=== PATIENT | female | born 1940 | race African-American/Black ===

== ENCOUNTER 2024-02-09 11:00 | Outpatient (REF) | payer SELFPAY ==
[2024-02-09 13:54] LABS: Syphilis Screen Nonreactive (Nonreactive)
[2024-02-09 13:55] LABS: Thyroid Stimulating Hormone 1.19 uIU/mL (0.32-4.0)
== END 2024-02-09 11:01 | disposition home or self-care (01) ==
LOC: HO.HVNA 11:00
PROVIDERS: Visit Provider Psychiatry & Neurology Neurology
DX: F03.90 Unspecified dementia, unspecified severity, without behavioral disturbance, psychotic disturbance, mood disturbance, and anxiety (principal); F48.2 Pseudobulbar affect
CPT/HCPCS: 36415; 84436; 84443; 86780

== ENCOUNTER → 2024-04-17 14:29 | Outpatient (REF) | payer MEDICARE, SELFPAY ==
--- NOTE | 2024-04-17 14:39 | CA_ITS ---
Transthoracic Echocardiogram Patient (Last, First, Middle): Agueda Lopez, Gender: Female Date of : 1940 Age: 83 Procedure Date: 04/17/2024 Procedure Type: Transthoracic Echocardiogram Location: OP Height: 162. cm Weight: 48.99 kg BSA: 1.50 m2 Heart Rate: 83 bpm BP: 160 / 90 mmHg Monotype Setter: AIMEE Referring MD: Flory Neely [employer] Symptoms: SOB R06.02 Study Quality: Adequate ECG Rhythm: Sinus Conclusions: - The left ventricular systolic function is mildly decreased. The visually estimated ejection fraction is between 45-50%. - No obvious valvular pathology seen on this study. Findings Left Ventricle Normal left ventricular cavity size. There is mildly increased left ventricular wall thickness. The left ventricular systolic function is mildly decreased. The visually estimated ejection fraction is between 45-50%. There is mild global hypokinesis. Evidence suggests grade I (mild) diastolic dysfunction. Right Ventricle Normal right ventricular cavity size. There is mildly decreased right ventricular systolic function. Atria Both atria are normal in size. Aortic Valve There is a normal trileaflet aortic valve. There is mild calcification of the aortic valve. There is no aortic valve regurgitation. Mitral Valve The mitral valve appears normal. There is no mitral valve regurgitation. There is no mitral valve stenosis. Pulmonic Valve The pulmonic valve is likely normal. Tricuspid Valve There is trace tricuspid valve regurgitation. Tricuspid regurgitation envelope is inadequate for calculation of right ventricular systolic pressure. There is no evidence of pulmonary hypertension. Great Vessels The asc aorta is normal in size. Small plaque is seen in the sino tubular ridge. Venous The inferior vena cava is normal in size and collapses greater than 50% with inspiration. Pericardium/Pleural There is no evidence of pericardial effusion. Prior Study Comparison No prior study available for comparison. Recommendations, Care & Conclusions No obvious valvular pathology seen on this study. Measurements 2D Linear Measurements IVSd: 1.11 0.6-0.9/0.6-1.0 cm LVIDd: 3.56 3.9-5.3/4.2-5.9 cm LVIDd Index: 2.37 2.4-3.2/2.2-3.1 cm/m2 LVIDs: 2.38 2.0-3.6 cm LVPWd: 1.04 0.7-1.1 cm LA Diam: 2.30 2.7-3.8/3.0-4.0 cm LAIDs Index: 1.53 1.5-2.3 cm/m2 LV Mass: 146.69 67-162/88-224 g LV Mass Index: 97.80 43-95/49-115 g/m2 LVOT Diam: 1.80 3.0+(-)1.3 cm 2D Systolic Function EF 4C: 51.20 >55% EF 2C: 64.00 >55% Mitral Valve MV Pk E: 0.49 MV PK A: 0.92 MV Decel Time: 340.00 E/A: 0.50 E'Lateral: 8.38 E'Medial: 4.57 E/E' Med: 10.70 E/E' Lat: 5.80 PHT: 100.00 MVA PHT: 2.20 Decel [place]: 1.44 Aortic Valve AoV Pk Giovanni: 0.95 AoV Mn Giovanni: 0.71 AoV VTI: 0.18 AoV Pk Grad: 4.00 Aov Mn Grad: 2.00 ADITI Cont.VTI: 1.68 LVOT LVOT Pk Giovanni: 0.69 LVOT Mn Giovanni: 0.51 LVOT VTI: 0.12 LVOT Pk Grad: 2.00 LVOT Mn Grad: 1.00 LVOT Diam: 1.80 LVOT Area: 2.54 Diastolic Function MV Pk E: 0.49 MV Pk A: 0.92 E/A: 0.50 E'Medial: 4.57 E/E' Med: 10.70 E' Laterial: 8.38 E/E' Lat: 5.80 Right Ventricle TAPSE (mm): 15.00 TVS' Giovanni: 7.62 Great Vessels Aorta Sinus of Valsalva: 2.90 2.0-3.5 cm Ao Asc: 3.30 2.1-3.4 cm Pulmonary Valve PV Pk Giovanni: 0.86 Peak PV Grad: 3.00 Updated in Other Vendor System with Status of Final Kwasi Harding MD electronically signed on 04/18/2024 9:59:59 AM with status of Final
== END ==
LOC: HO.CARD 14:29
PROVIDERS: PCP Nurse Practitioner Primary Care; Visit Provider Nurse Practitioner Primary Care
DX: R06.02 Shortness of breath (principal)
CPT/HCPCS: 93306

== ENCOUNTER → 2024-04-17 14:39 | Outpatient (BNV) | payer MEDICARE, SELFPAY | PROVIDERS: PCP Nurse Practitioner Primary Care; Visit Provider Internal Medicine | DX: I35.8 Other nonrheumatic aortic valve disorders (principal); I51.89 Other ill-defined heart diseases | CPT/HCPCS: 93306 ==